=== PATIENT | female | born 1985 | race Caucasian/White ===

== ENCOUNTER 2018-04-02 00:47 | Emergency (ER) | payer SELFPAY ==
[~2018-04-02] VITALS: Ht 170.2 cm; Wt 99.8 kg
[2018-04-02 00:50] VITALS: BP 187/100
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
[2018-04-02] MEDS ORDERED: TRAM50TA PO (03:36)
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
== END 2018-04-02 04:15 | disposition home or self-care (01) ==
LOC: ER 00:47 → EEVIPCON 00:47 → ER 04:15
DX: S00.03XA Contusion of scalp, initial encounter (principal); F10.229 Alcohol dependence with intoxication, unspecified; Y90.9 Presence of alcohol in blood, level not specified; Z98.51 Tubal ligation status; Y08.89XA Assault by other specified means, initial encounter; Y93.89 Activity, other specified; Y92.89 Other specified places as the place of occurrence of the external cause; Y99.8 Other external cause status
CPT/HCPCS: 70450; 70486; 99284